=== PATIENT | female | born 1940 | race Caucasian/White ===

== ENCOUNTER 2021-05-09 11:18 | Inpatient (IN) | payer MEDICARE ==
[~2021-05-09] VITALS: Ht 152.4 cm; Wt 55.8 kg
[2021-05-09] MEDS ORDERED: Morphine 2mg Syringe 2 MG/ML SYR IV STA (12:19)
[2021-05-09] MEDS ORDERED: ONDANSETRON HCL INJ 2MG/ML 2ML 2 MG/ML VIAL IV STA (12:19)
[2021-05-09] MEDS ORDERED: SODIUM CHLORIDE 0.9% 1000ML 500 ML IV STA (12:19)
[2021-05-09 12:35] LABS: BASOPHILS % 0.2 % (0.0-1.0); EOSINOPHILS # (AUTO) 0.1 (0.0-0.4); EOSINOPHILS % 0.3 % (0.0-6.0); HEMATOCRIT 35.9 % (34.2-44.1); HEMOGLOBIN 10.6 g/dL (12.0-16.0); LYMPHOCYTES # (AUTO) 2.5 (1.0-3.2); MEAN CORPUSCULAR HGB CONC 29.5 g/dL (31-35); MEAN CORPUSCULAR VOLUME 91.3 fL (81-99); MONOCYTES # (AUTO) 0.9 (0.2-0.8); MONOCYTES % 5.3 % (4.4-11.3); NEUTROPHILS # (AUTO) 13.2 (2.1-6.9); NEUTROPHILS % 78.7 % (38.7-80.0); PLATELET COUNT 366 x10e3/uL (140-360); RED BLOOD COUNT 3.93 x10e6/uL (3.6-5.1); RED CELL DISTRIBUTION WIDTH 13.6 % (11.7-14.4)
[2021-05-09 12:45] LABS: INR 0.95; PROTHROMBIN TIME 13.4 seconds (11.9-14.5)
[2021-05-09 12:46] LABS: PARTIAL THROMBOPLASTIN TIME 32.4 seconds (23.8-35.5)
[2021-05-09 12:55] LABS: ALBUMIN 3.6 g/dL (3.5-5.0); ALBUMIN/GLOBULIN RATIO 0.9 (0.8-2.0); ANION GAP 14.3 mmol/L (8-16); CALCIUM 9.2 mg/dL (8.4-10.2); CREATININE, SERUM 0.71 mg/dL (0.57-1.11); POTASSIUM 4.3 mmol/L (3.5-5.1)
[2021-05-09 13:02] LABS: CREATINE KINASE MB 0.9 ng/mL (0-5.0)
[2021-05-09] MEDS ORDERED: IOPAMIDOL 370 MG/ML 200 ML INFUS..BTL INJ ONE (13:19)
[2021-05-09] MEDS ORDERED: SODIUM CHLORIDE 0.9% 50ML 50 ML ONE (13:19)
[2021-05-09] MEDS ORDERED: Vancomycin IV 1 GM in SODIUM CHLORIDE 0.9% 250ML 250 ML IV STA (14:22)
[2021-05-09] MEDS ORDERED: PIPERACILLIN/TAZOBACTAM 3.375 GM in SODIUM CHLORIDE 0.9% 50ML 50 ML IV ONE (15:15)
[2021-05-09] MEDS ORDERED: Morphine 2mg Syringe 2 MG/ML SYR IV PRN (15:15)
[2021-05-09] MEDS: D5.45%NS/KCL 20MEQ 1,000 ML IV SCH (17:51)
[2021-05-09 18:17] VITALS: BP 163/68
[2021-05-09 18:24] LABS: CREATINE KINASE MB 0.9 ng/mL (0-5.0)
[2021-05-09 18:30] VITALS: BP 163/68
[2021-05-09 18:42] VITALS: BP 163/68
[2021-05-09] MEDS ORDERED: ACETAMINOPHEN 650 MG SUPP PR PRN (19:15)
[2021-05-09 22:08] VITALS: BP 161/63
[2021-05-09] MEDS ORDERED: PREDNISONE10 MG PO (22:26)
[2021-05-09] MEDS ORDERED: METOPROLOL SUCC25 MG PO (22:26)
[2021-05-09] MEDS ORDERED: ALPRAZOLAM0.25 MG PO (22:26)
[2021-05-09] MEDS ORDERED: ALENDRONATE SOD70 MG PO (22:26)
[2021-05-09] MEDS ORDERED: CLOPIDOGREL75 MG PO (22:26)
[2021-05-09] MEDS ORDERED: ATORVASTATIN CA20 MG PO (22:26)
[2021-05-10 00:30] VITALS: BP 161/63
[2021-05-10 00:48] VITALS: BP 149/70
[2021-05-10] MEDS: Morphine 2mg Syringe 2 MG/ML SYR IV PRN ×3 (02:15→10:06)
[2021-05-10] MEDS: D5.45%NS/KCL 20MEQ 1,000 ML IV SCH ×4 (02:18→21:30)
[2021-05-10 02:44] LABS: FERRITIN 23.49 ng/mL (4.63-204.00)
[2021-05-10] MEDS ORDERED: Pantoprazole IV 40 MG in SODIUM CHLORIDE 0.9% 50ML 50 ML IV SCH (02:45)
[2021-05-10 05:28] VITALS: BP 134/58
[2021-05-10 06:32] LABS: BASOPHILS % 0.2 % (0.0-1.0); EOSINOPHILS # (AUTO) 0.1 (0.0-0.4); EOSINOPHILS % 0.8 % (0.0-6.0); HEMATOCRIT 30.3 % (34.2-44.1); HEMOGLOBIN 9.1 g/dL (12.0-16.0); LYMPHOCYTES # (AUTO) 1.9 (1.0-3.2); LYMPHOCYTES % 14.8 % (18.0-39.1); MEAN CORPUSCULAR HEMOGLOBIN 26.8 pg (28-32); MEAN CORPUSCULAR VOLUME 89.4 fL (81-99); MONOCYTES # (AUTO) 1.1 (0.2-0.8); MONOCYTES % 8.5 % (4.4-11.3); NEUTROPHILS # (AUTO) 9.9 (2.1-6.9); NEUTROPHILS % 75.2 % (38.7-80.0); PLATELET COUNT 301 x10e3/uL (140-360); RED BLOOD COUNT 3.39 x10e6/uL (3.6-5.1); RED CELL DISTRIBUTION WIDTH 13.7 % (11.7-14.4)
[2021-05-10 07:13] LABS: ALBUMIN 2.9 g/dL (3.5-5.0); ANION GAP 11.5 mmol/L (8-16); CALCIUM 7.7 mg/dL (8.4-10.2); CREATININE, SERUM 0.6 mg/dL (0.57-1.11); POTASSIUM 4.5 mmol/L (3.5-5.1)
[2021-05-10 07:29] LABS: CHOL/HDL RATIO 2.9 (3.0-3.6); MAGNESIUM 2.2 MG/DL (1.3-2.1); PHOSPHORUS 2.1 MG/DL (2.3-4.7)
[2021-05-10 07:38] LABS: CREATINE KINASE MB 0.6 ng/mL (0-5.0)
[2021-05-10 07:50] LABS: THYROID STIMULATING HORMONE 1.03 uIU/mL (0.350-4.940)
[2021-05-10] MEDS: Pantoprazole IV 40 MG in SODIUM CHLORIDE 0.9% 50ML 50 ML IV SCH ×4 (08:11→22:32)
[2021-05-10 08:12] VITALS: BP 134/52
[2021-05-10] MEDS ORDERED: SODIUM CHLORIDE 0.9% 50ML 50 ML ONE (10:37)
[2021-05-10] MEDS ORDERED: IOPAMIDOL 370 MG/ML 200 ML INFUS..BTL INJ ONE (10:38)
[2021-05-10] MEDS ORDERED: Morphine 2mg Syringe 2 MG/ML SYR IV ONE (11:00)
[2021-05-10] MEDS ORDERED: NALOXONE HCL INJ 0.4 MG/ML AMP IV PRN (11:00)
[2021-05-10] MEDS: Morphine 4mg Syringe 4 MG/ML INJ IV PRN ×3 (13:05→21:30)
[2021-05-10 15:43] LABS: CREATINE KINASE MB 0.6 ng/mL (0-5.0)
[2021-05-10 20:22] VITALS: BP 132/54
[2021-05-10 21:30] VITALS: BP 132/54
[2021-05-10] MEDS: ONDANSETRON HCL INJ 2MG/ML 2ML 2 MG/ML VIAL IV PRN (21:30)
[2021-05-11] VITALS (8 sets, daily range): BP systolic 110–140; BP diastolic 43–57
[2021-05-11] MEDS: ONDANSETRON HCL INJ 2MG/ML 2ML 2 MG/ML VIAL IV PRN ×4 (01:30→16:42)
[2021-05-11] MEDS: Morphine 4mg Syringe 4 MG/ML INJ IV PRN ×4 (01:30→16:42)
[2021-05-11] MEDS: Pantoprazole IV 40 MG in SODIUM CHLORIDE 0.9% 50ML 50 ML IV SCH ×5 (03:32→21:45)
[2021-05-11 05:37] LABS: BASOPHILS % 0.3 % (0.0-1.0); EOSINOPHILS # (AUTO) 0.1 (0.0-0.4); EOSINOPHILS % 0.9 % (0.0-6.0); HEMATOCRIT 27.9 % (34.2-44.1); HEMOGLOBIN 8.2 g/dL (12.0-16.0); LYMPHOCYTES # (AUTO) 1.3 (1.0-3.2); LYMPHOCYTES % 19.5 % (18.0-39.1); MEAN CORPUSCULAR HEMOGLOBIN 26.8 pg (28-32); MEAN CORPUSCULAR HGB CONC 29.4 g/dL (31-35); MEAN CORPUSCULAR VOLUME 91.2 fL (81-99); MONOCYTES # (AUTO) 0.9 (0.2-0.8); MONOCYTES % 14.1 % (4.4-11.3); NEUTROPHILS # (AUTO) 4.2 (2.1-6.9); PLATELET COUNT 247 x10e3/uL (140-360); RED BLOOD COUNT 3.06 x10e6/uL (3.6-5.1); RED CELL DISTRIBUTION WIDTH 13.5 % (11.7-14.4)
[2021-05-11 05:54] LABS: ALBUMIN 2.5 g/dL (3.5-5.0); ALBUMIN/GLOBULIN RATIO 0.8 (0.8-2.0); ANION GAP 9.4 mmol/L (8-16); CALCIUM 7.2 mg/dL (8.4-10.2); CREATININE, SERUM 0.6 mg/dL (0.57-1.11); POTASSIUM 4.4 mmol/L (3.5-5.1)
[2021-05-11] MEDS: D5.45%NS/KCL 20MEQ 1,000 ML IV SCH ×2 (06:49→16:28)
[2021-05-12] VITALS (10 sets, daily range): BP systolic 130–166; BP diastolic 48–80
[2021-05-12] MEDS: D5.45%NS/KCL 20MEQ 1,000 ML IV SCH ×2 (00:39→07:15)
[2021-05-12] MEDS: Pantoprazole IV 40 MG in SODIUM CHLORIDE 0.9% 50ML 50 ML IV SCH ×4 (03:34→19:55)
[2021-05-12 05:19] LABS: BASOPHILS % 0.3 % (0.0-1.0); EOSINOPHILS % 0.6 % (0.0-6.0); HEMATOCRIT 28.4 % (34.2-44.1); HEMOGLOBIN 8.2 g/dL (12.0-16.0); LYMPHOCYTES # (AUTO) 1.7 (1.0-3.2); LYMPHOCYTES % 25.2 % (18.0-39.1); MEAN CORPUSCULAR HEMOGLOBIN 26.5 pg (28-32); MEAN CORPUSCULAR HGB CONC 28.9 g/dL (31-35); MEAN CORPUSCULAR VOLUME 91.9 fL (81-99); MONOCYTES % 15.2 % (4.4-11.3); NEUTROPHILS % 58.6 % (38.7-80.0); PLATELET COUNT 254 x10e3/uL (140-360); RED BLOOD COUNT 3.09 x10e6/uL (3.6-5.1); RED CELL DISTRIBUTION WIDTH 13.3 % (11.7-14.4); RETICULOCYTE % 1.7 % (0.8-2.2)
[2021-05-12 05:26] LABS: ANION GAP 11.1 mmol/L (8-16); CALCIUM 7.2 mg/dL (8.4-10.2); CREATININE, SERUM 0.58 mg/dL (0.57-1.11); PHOSPHORUS 1.6 MG/DL (2.3-4.7); POTASSIUM 4.1 mmol/L (3.5-5.1)
[2021-05-12] MEDS: Morphine 4mg Syringe 4 MG/ML INJ IV PRN (05:32)
[2021-05-12] MEDS: ONDANSETRON HCL INJ 2MG/ML 2ML 2 MG/ML VIAL IV PRN ×2 (05:32→15:14)
[2021-05-12] MEDS ORDERED: PROPOFOL IV EMULSION 10 MG/ML 20 ML VIAL ONE (12:18)
[2021-05-12] MEDS ORDERED: ONDANSETRON HCL INJ 2MG/ML 2ML 2 MG/ML VIAL ONE ×2 (12:18→13:43)
[2021-05-12] MEDS ORDERED: NEOSTIGMINE 1 MG/ML 10ML VIAL ONE (12:18)
[2021-05-12] MEDS ORDERED: LIDOCAINE HCL 2% LOCAL INJ 5 ML SDV VIAL INJ ONE (12:18)
[2021-05-12] MEDS ORDERED: POVIDONE IODINE 0.05% 0.05 % ML PO ONE (12:18)
[2021-05-12] MEDS ORDERED: GLYCOPYRROLATE INJ 0.2 MG/ML VIAL ONE (12:18)
[2021-05-12] MEDS ORDERED: EPHEDRINE SULFATE INJ 50 MG/ML VIAL ONE (12:18)
[2021-05-12] MEDS ORDERED: DEXAMETHASONE SOD PHOS INJ 4 MG/ML SDV ONE (12:18)
[2021-05-12] MEDS ORDERED: SEVOFLURANE INHAL SOLN 250 ML PEN BTL ONE (12:18)
[2021-05-12] MEDS ORDERED: FENTANYL CITRATE/PF 100MCG/2 ML INJ ONE ×2 (12:53→13:47)
[2021-05-12] MEDS ORDERED: MIDAZOLAM HCL 2 MG/2 ML VIAL ONE (12:53)
[2021-05-12] MEDS ORDERED: ACETAMINOPHEN 1000 MG/100 ML IV PRN (14:00)
[2021-05-12] MEDS: SODIUM CHLORIDE 0.9% 1000ML 1,000 ML IV SCH (14:30)
[2021-05-12] MEDS: SODIUM CHLORIDE 0.9% 250ML IRRIG IR SCH ×3 (14:50→21:41)
[2021-05-12] MEDS: HYDROMORPHONE 1MG/1ML INJ IV PRN ×3 (15:12→21:40)
[2021-05-12] MEDS: CEFOXITIN 1GM/0.9% NS 50ML 50 ML IV SCH (20:10)
[2021-05-13] VITALS (11 sets, daily range): BP systolic 145–181; BP diastolic 47–64
[2021-05-13] MEDS: Pantoprazole IV 40 MG in SODIUM CHLORIDE 0.9% 50ML 50 ML IV SCH ×5 (00:58→21:40)
[2021-05-13] MEDS: SODIUM CHLORIDE 0.9% 1000ML 1,000 ML IV SCH ×3 (00:58→19:54)
[2021-05-13] MEDS: HYDROMORPHONE 1MG/1ML INJ IV PRN ×6 (01:13→19:34)
[2021-05-13] MEDS: SODIUM CHLORIDE 0.9% 250ML IRRIG IR SCH ×6 (01:34→21:33)
[2021-05-13] MEDS ORDERED: HYDROMORPHONE 1MG/1ML INJ IV ONE (01:45)
[2021-05-13] MEDS: CEFOXITIN 1GM/0.9% NS 50ML 50 ML IV SCH (04:29)
[2021-05-13 08:03] LABS: BASOPHILS % 0.1 % (0.0-1.0); HEMATOCRIT 28.2 % (34.2-44.1); HEMOGLOBIN 8.4 g/dL (12.0-16.0); LYMPHOCYTES # (AUTO) 0.7 (1.0-3.2); MEAN CORPUSCULAR HGB CONC 29.8 g/dL (31-35); MEAN CORPUSCULAR VOLUME 90.7 fL (81-99); MONOCYTES % 10.6 % (4.4-11.3); NEUTROPHILS # (AUTO) 7.4 (2.1-6.9); NEUTROPHILS % 80.6 % (38.7-80.0); PLATELET COUNT 297 x10e3/uL (140-360); RED BLOOD COUNT 3.11 x10e6/uL (3.6-5.1); RED CELL DISTRIBUTION WIDTH 13.5 % (11.7-14.4)
[2021-05-13 08:16] LABS: ANION GAP 11.8 mmol/L (8-16); CREATININE, SERUM 0.64 mg/dL (0.57-1.11); POTASSIUM 3.8 mmol/L (3.5-5.1)
[2021-05-13] MEDS: ONDANSETRON HCL INJ 2MG/ML 2ML 2 MG/ML VIAL IV PRN (09:25)
[2021-05-13] MEDS ORDERED: SODIUM CHLORIDE 0.9% 50ML 50 ML ONE (11:56)
[2021-05-13] MEDS: IRON SUCROSE 100 MG in SODIUM CHLORIDE 0.9% 100 ML 100 ML IV SCH (12:40)
[2021-05-14] VITALS (7 sets, daily range): BP systolic 143–167; BP diastolic 46–66
[2021-05-14] MEDS: SODIUM CHLORIDE 0.9% 250ML IRRIG IR SCH ×6 (01:32→21:08)
[2021-05-14] MEDS: HYDROMORPHONE 1MG/1ML INJ IV PRN ×7 (01:36→23:09)
[2021-05-14] MEDS: Pantoprazole IV 40 MG in SODIUM CHLORIDE 0.9% 50ML 50 ML IV SCH ×5 (01:42→21:08)
[2021-05-14] MEDS: SODIUM CHLORIDE 0.9% 1000ML 1,000 ML IV SCH ×3 (04:32→21:08)
[2021-05-14 06:45] LABS: BASOPHILS % 0.1 % (0.0-1.0); EOSINOPHILS % 0.2 % (0.0-6.0); HEMATOCRIT 26.1 % (34.2-44.1); HEMOGLOBIN 7.6 g/dL (12.0-16.0); LYMPHOCYTES # (AUTO) 1.2 (1.0-3.2); MEAN CORPUSCULAR HEMOGLOBIN 26.7 pg (28-32); MEAN CORPUSCULAR HGB CONC 29.1 g/dL (31-35); MEAN CORPUSCULAR VOLUME 91.6 fL (81-99); MONOCYTES # (AUTO) 1.1 (0.2-0.8); MONOCYTES % 11.3 % (4.4-11.3); NEUTROPHILS # (AUTO) 7.4 (2.1-6.9); NEUTROPHILS % 76.1 % (38.7-80.0); PLATELET COUNT 299 x10e3/uL (140-360); RED BLOOD COUNT 2.85 x10e6/uL (3.6-5.1); RED CELL DISTRIBUTION WIDTH 13.8 % (11.7-14.4)
[2021-05-14 07:00] LABS: ANION GAP 10.7 mmol/L (8-16); CALCIUM 7.4 mg/dL (8.4-10.2); CREATININE, SERUM 0.54 mg/dL (0.57-1.11); POTASSIUM 3.7 mmol/L (3.5-5.1)
[2021-05-14] MEDS: ONDANSETRON HCL INJ 2MG/ML 2ML 2 MG/ML VIAL IV PRN (09:06)
[2021-05-14] MEDS: IRON SUCROSE 100 MG in SODIUM CHLORIDE 0.9% 100 ML 100 ML IV SCH (10:39)
[2021-05-14] MEDS ORDERED: BISACODYL 10 MG SUPP PR ONE ×2 (13:51→14:10)
[2021-05-14] MEDS: BISACODYL 10 MG SUPP PR SCH (21:13)
[2021-05-15] VITALS (8 sets, daily range): BP systolic 147–177; BP diastolic 56–70
[2021-05-15] MEDS: SODIUM CHLORIDE 0.9% 250ML IRRIG IR SCH ×4 (01:30→13:30)
[2021-05-15] MEDS: Pantoprazole IV 40 MG in SODIUM CHLORIDE 0.9% 50ML 50 ML IV SCH ×5 (03:55→22:54)
[2021-05-15] MEDS: HYDROMORPHONE 1MG/1ML INJ IV PRN ×4 (05:26→22:04)
[2021-05-15 06:23] LABS: BASOPHILS % 0.2 % (0.0-1.0); EOSINOPHILS % 0.4 % (0.0-6.0); HEMATOCRIT 25.7 % (34.2-44.1); HEMOGLOBIN 7.7 g/dL (12.0-16.0); LYMPHOCYTES # (AUTO) 1.3 (1.0-3.2); LYMPHOCYTES % 15.6 % (18.0-39.1); MEAN CORPUSCULAR HEMOGLOBIN 26.7 pg (28-32); MEAN CORPUSCULAR VOLUME 89.2 fL (81-99); MONOCYTES # (AUTO) 0.8 (0.2-0.8); MONOCYTES % 9.5 % (4.4-11.3); NEUTROPHILS # (AUTO) 6.3 (2.1-6.9); NEUTROPHILS % 73.6 % (38.7-80.0); PLATELET COUNT 311 x10e3/uL (140-360); RED BLOOD COUNT 2.88 x10e6/uL (3.6-5.1); RED CELL DISTRIBUTION WIDTH 13.3 % (11.7-14.4)
[2021-05-15 06:51] LABS: ALBUMIN 1.9 g/dL (3.5-5.0); ALBUMIN/GLOBULIN RATIO 0.6 (0.8-2.0); ANION GAP 13.8 mmol/L (8-16); CALCIUM 7.7 mg/dL (8.4-10.2); CREATININE, SERUM 0.5 mg/dL (0.57-1.11)
[2021-05-15 06:55] LABS: POTASSIUM 2.8 mmol/L (3.5-5.1)
[2021-05-15] MEDS ORDERED: DEXTROSE 50% SYRINGE 50 ML IV ONE (07:21)
[2021-05-15] MEDS: BISACODYL 10 MG SUPP PR SCH (08:43)
[2021-05-15] MEDS: POTASSIUM CHLORIDE 20MEQ/100ML 100 ML IV ONE ×2 (08:43→12:40)
[2021-05-15] MEDS: IRON SUCROSE 100 MG in SODIUM CHLORIDE 0.9% 100 ML 100 ML IV SCH (08:43)
[2021-05-15] MEDS ORDERED: POTASSIUM CHLORIDE 20MEQ/100ML 100 ML IV ONE ×2 (10:00→15:00)
[2021-05-15] MEDS ORDERED: BISACODYL 10 MG SUPP PR ONE (10:15)
[2021-05-15] MEDS: SODIUM CHLORIDE 0.9% 1000ML 1,000 ML IV SCH ×2 (12:22→21:48)
[2021-05-15] MEDS: ONDANSETRON HCL INJ 2MG/ML 2ML 2 MG/ML VIAL IV PRN (12:30)
[2021-05-15] MEDS ORDERED: POTASSIUM CHLORIDE 20MEQ/100ML 100 ML ONE (19:14)
[2021-05-16 00:11] VITALS: BP 144/59
[2021-05-16] MEDS: Pantoprazole IV 40 MG in SODIUM CHLORIDE 0.9% 50ML 50 ML IV SCH ×5 (04:08→23:04)
[2021-05-16] MEDS: HYDROMORPHONE 1MG/1ML INJ IV PRN ×3 (04:13→15:42)
[2021-05-16 04:23] VITALS: BP_SYST 154; BP_SYST 160; BP_DIAS 105; BP_DIAS 56
[2021-05-16 05:05] LABS: BASOPHILS % 0.1 % (0.0-1.0); EOSINOPHILS % 0.6 % (0.0-6.0); LYMPHOCYTES # (AUTO) 1.1 (1.0-3.2); LYMPHOCYTES % 15.8 % (18.0-39.1); MEAN CORPUSCULAR HEMOGLOBIN 26.4 pg (28-32); MEAN CORPUSCULAR HGB CONC 29.6 g/dL (31-35); MEAN CORPUSCULAR VOLUME 89.1 fL (81-99); MONOCYTES # (AUTO) 0.8 (0.2-0.8); MONOCYTES % 10.8 % (4.4-11.3); NEUTROPHILS # (AUTO) 5.1 (2.1-6.9); NEUTROPHILS % 72.1 % (38.7-80.0); PLATELET COUNT 293 x10e3/uL (140-360); RED BLOOD COUNT 3.03 x10e6/uL (3.6-5.1); RED CELL DISTRIBUTION WIDTH 13.5 % (11.7-14.4)
[2021-05-16 05:33] LABS: ALBUMIN/GLOBULIN RATIO 0.7 (0.8-2.0); ANION GAP 12.5 mmol/L (8-16); CALCIUM 7.7 mg/dL (8.4-10.2); CREATININE, SERUM 0.53 mg/dL (0.57-1.11); POTASSIUM 3.5 mmol/L (3.5-5.1)
[2021-05-16] MEDS: SODIUM CHLORIDE 0.9% 1000ML 1,000 ML IV SCH ×2 (07:30→16:47)
[2021-05-16 08:00] VITALS: BP 160/56
[2021-05-16 08:40] VITALS: BP 148/54
[2021-05-16] MEDS: IRON SUCROSE 100 MG in SODIUM CHLORIDE 0.9% 100 ML 100 ML IV SCH (09:00)
[2021-05-16] MEDS: HYDROCODONE/APAP 5MG-325MG TAB PO PRN (17:30)
[2021-05-16 20:22] VITALS: BP 148/54
[2021-05-16 20:49] VITALS: BP 170/60
[2021-05-17] VITALS (8 sets, daily range): BP systolic 139–174; BP diastolic 61–83
[2021-05-17] MEDS: HYDROMORPHONE 1MG/1ML INJ IV PRN (00:44)
[2021-05-17] MEDS: Pantoprazole IV 40 MG in SODIUM CHLORIDE 0.9% 50ML 50 ML IV SCH (06:49)
[2021-05-17 07:22] LABS: BASOPHILS % 0.2 % (0.0-1.0); EOSINOPHILS # (AUTO) 0.1 (0.0-0.4); EOSINOPHILS % 0.9 % (0.0-6.0); HEMATOCRIT 27.5 % (34.2-44.1); HEMOGLOBIN 8.1 g/dL (12.0-16.0); LYMPHOCYTES # (AUTO) 2.1 (1.0-3.2); LYMPHOCYTES % 20.8 % (18.0-39.1); MEAN CORPUSCULAR HEMOGLOBIN 26.3 pg (28-32); MEAN CORPUSCULAR HGB CONC 29.5 g/dL (31-35); MEAN CORPUSCULAR VOLUME 89.3 fL (81-99); MONOCYTES # (AUTO) 0.9 (0.2-0.8); MONOCYTES % 8.7 % (4.4-11.3); NEUTROPHILS # (AUTO) 6.8 (2.1-6.9); NEUTROPHILS % 68.6 % (38.7-80.0); PLATELET COUNT 327 x10e3/uL (140-360); RED BLOOD COUNT 3.08 x10e6/uL (3.6-5.1); RED CELL DISTRIBUTION WIDTH 13.5 % (11.7-14.4)
[2021-05-17 07:50] LABS: ALBUMIN/GLOBULIN RATIO 0.7 (0.8-2.0); ANION GAP 12.3 mmol/L (8-16); CALCIUM 7.9 mg/dL (8.4-10.2); CREATININE, SERUM 0.48 mg/dL (0.57-1.11); POTASSIUM 3.3 mmol/L (3.5-5.1)
[2021-05-17] MEDS: HYDROCODONE/APAP 5MG-325MG TAB PO PRN ×2 (08:41→19:45)
[2021-05-17] MEDS: PANTOPRAZOLE SOD 40 MG TABEC PO SCH ×2 (09:00→17:00)
[2021-05-17] MEDS: IRON SUCROSE 100 MG in SODIUM CHLORIDE 0.9% 100 ML 100 ML IV SCH (09:00)
[2021-05-17] MEDS ORDERED: POTASSIUM CHLORIDE 20 MEQ TAB CR PO STA (10:08)
[2021-05-17] MEDS ORDERED: ZOLPIDEM TARTRATE 5 MG TAB PO PRN (13:15)
[2021-05-17] MEDS: SODIUM CHLORIDE 0.9% 1000ML 1,000 ML IV SCH (14:23)
[2021-05-17] MEDS: HYDRALAZINE HCL 20 MG/ML VIAL IV PRN (22:25)
[2021-05-18] VITALS (8 sets, daily range): BP systolic 126–176; BP diastolic 56–80
[2021-05-18 06:14] LABS: BASOPHILS % 0.4 % (0.0-1.0); EOSINOPHILS # (AUTO) 0.1 (0.0-0.4); EOSINOPHILS % 0.9 % (0.0-6.0); HEMATOCRIT 25.9 % (34.2-44.1); LYMPHOCYTES # (AUTO) 1.9 (1.0-3.2); LYMPHOCYTES % 17.1 % (18.0-39.1); MEAN CORPUSCULAR HEMOGLOBIN 26.9 pg (28-32); MEAN CORPUSCULAR HGB CONC 30.9 g/dL (31-35); MEAN CORPUSCULAR VOLUME 87.2 fL (81-99); MONOCYTES # (AUTO) 0.8 (0.2-0.8); MONOCYTES % 7.1 % (4.4-11.3); NEUTROPHILS # (AUTO) 8.2 (2.1-6.9); NEUTROPHILS % 73.2 % (38.7-80.0); PLATELET COUNT 246 x10e3/uL (140-360); RED BLOOD COUNT 2.97 x10e6/uL (3.6-5.1); RED CELL DISTRIBUTION WIDTH 13.7 % (11.7-14.4)
[2021-05-18 06:35] LABS: ALANINE AMINOTRANSFERASE 7 IU/L (0-55); ALBUMIN/GLOBULIN RATIO 0.7 (0.8-2.0); ALKALINE PHOSPHATASE 70 IU/L (40-150); ANION GAP 11.6 mmol/L (8-16); BLOOD UREA NITROGEN < 5 mg/dL (7-26); CALCIUM 7.4 mg/dL (8.4-10.2); CARBON DIOXIDE 30 mmol/L (22-29); CHLORIDE 101 mmol/L (98-107); CREATININE, SERUM 0.45 mg/dL (0.57-1.11); EST GLOMERULAR FILTRATION RATE 133 ML/MIN (60-); GLUCOSE 90 mg/dL (74-118); SODIUM 140 mmol/L (136-145)
[2021-05-18 06:43] LABS: BUN/CREATININE RATIO 11 (6-25)
[2021-05-18 06:45] LABS: POTASSIUM 2.6 mmol/L (3.5-5.1)
[2021-05-18] MEDS: POTASSIUM CHLORIDE 20MEQ/100ML 200 ML IV SCH ×2 (08:50→10:00)
[2021-05-18] MEDS: PANTOPRAZOLE SOD 40 MG TABEC PO SCH ×2 (09:00→16:31)
[2021-05-18] MEDS: IRON SUCROSE 100 MG in SODIUM CHLORIDE 0.9% 100 ML 100 ML IV SCH (09:00)
[2021-05-18] MEDS: HYDROMORPHONE 1MG/1ML INJ IV PRN ×2 (09:20→15:30)
[2021-05-18] MEDS: SODIUM CHLORIDE 0.9% 1000ML 1,000 ML IV SCH (10:23)
[2021-05-19] VITALS (8 sets, daily range): BP systolic 127–170; BP diastolic 50–74
[2021-05-19 05:05] LABS: BASOPHILS % 0.2 % (0.0-1.0); EOSINOPHILS # (AUTO) 0.1 (0.0-0.4); EOSINOPHILS % 0.6 % (0.0-6.0); HEMATOCRIT 27.9 % (34.2-44.1); HEMOGLOBIN 8.4 g/dL (12.0-16.0); LYMPHOCYTES # (AUTO) 2.1 (1.0-3.2); LYMPHOCYTES % 16.5 % (18.0-39.1); MEAN CORPUSCULAR HEMOGLOBIN 26.8 pg (28-32); MEAN CORPUSCULAR HGB CONC 30.1 g/dL (31-35); MEAN CORPUSCULAR VOLUME 88.9 fL (81-99); MONOCYTES # (AUTO) 0.8 (0.2-0.8); MONOCYTES % 6.4 % (4.4-11.3); NEUTROPHILS # (AUTO) 9.6 (2.1-6.9); NEUTROPHILS % 75.1 % (38.7-80.0); PLATELET COUNT 327 x10e3/uL (140-360); RED BLOOD COUNT 3.14 x10e6/uL (3.6-5.1); RED CELL DISTRIBUTION WIDTH 14.4 % (11.7-14.4)
[2021-05-19 05:19] LABS: ALANINE AMINOTRANSFERASE 6 IU/L (0-55); ALBUMIN/GLOBULIN RATIO 0.7 (0.8-2.0); ALKALINE PHOSPHATASE 74 IU/L (40-150); ANION GAP 12.8 mmol/L (8-16); BLOOD UREA NITROGEN < 5 mg/dL (7-26); CALCIUM 7.8 mg/dL (8.4-10.2); CARBON DIOXIDE 32 mmol/L (22-29); CHLORIDE 97 mmol/L (98-107); CREATININE, SERUM 0.51 mg/dL (0.57-1.11); EST GLOMERULAR FILTRATION RATE 115 ML/MIN (60-); GLUCOSE 122 mg/dL (74-118); SODIUM 139 mmol/L (136-145)
[2021-05-19 05:22] LABS: BUN/CREATININE RATIO 10 (6-25)
[2021-05-19 05:25] LABS: POTASSIUM 2.8 mmol/L (3.5-5.1)
[2021-05-19] MEDS ORDERED: POTASSIUM CHLORIDE 20 MEQ TAB CR PO ONE (05:45)
[2021-05-19] MEDS: SODIUM CHLORIDE 0.9% 1000ML 1,000 ML IV SCH (06:03)
[2021-05-19] MEDS: PANTOPRAZOLE SOD 40 MG TABEC PO SCH ×2 (10:19→17:50)
[2021-05-19] MEDS: IRON SUCROSE 100 MG in SODIUM CHLORIDE 0.9% 100 ML 100 ML IV SCH (10:19)
[2021-05-19] MEDS: HYDROMORPHONE 1MG/1ML INJ IV PRN (10:22)
[2021-05-19] MEDS ORDERED: ONDANSETRON HCL 4 MG ORAL DISINTEGRATING TAB PO PRN (11:30)
[2021-05-19] MEDS: HYDRALAZINE HCL 20 MG/ML VIAL IV PRN (12:06)
[2021-05-19] MEDS: HYDROCODONE/APAP 5MG-325MG TAB PO PRN (18:21)
[2021-05-20] VITALS (9 sets, daily range): BP systolic 119–158; BP diastolic 58–81
[2021-05-20] MEDS: HYDROCODONE/APAP 5MG-325MG TAB PO PRN ×2 (01:00→06:41)
[2021-05-20] MEDS ORDERED: DICYCLOMINE HCL 20 MG TAB PO STA (01:05)
[2021-05-20] MEDS: SODIUM CHLORIDE 0.9% 1000ML 1,000 ML IV SCH (04:07)
[2021-05-20 06:25] LABS: BASOPHILS % 0.2 % (0.0-1.0); EOSINOPHILS # (AUTO) 0.1 (0.0-0.4); EOSINOPHILS % 0.8 % (0.0-6.0); HEMATOCRIT 24.7 % (34.2-44.1); HEMOGLOBIN 7.4 g/dL (12.0-16.0); LYMPHOCYTES # (AUTO) 1.8 (1.0-3.2); LYMPHOCYTES % 14.2 % (18.0-39.1); MEAN CORPUSCULAR HEMOGLOBIN 26.9 pg (28-32); MEAN CORPUSCULAR VOLUME 89.8 fL (81-99); MONOCYTES # (AUTO) 0.7 (0.2-0.8); MONOCYTES % 5.1 % (4.4-11.3); NEUTROPHILS % 78.5 % (38.7-80.0); PLATELET COUNT 351 x10e3/uL (140-360); RED BLOOD COUNT 2.75 x10e6/uL (3.6-5.1); RED CELL DISTRIBUTION WIDTH 15.2 % (11.7-14.4)
[2021-05-20 06:46] LABS: ALBUMIN 1.8 g/dL (3.5-5.0); ALBUMIN/GLOBULIN RATIO 0.6 (0.8-2.0); CREATININE, SERUM 0.47 mg/dL (0.57-1.11)
[2021-05-20] MEDS ORDERED: IRON SUCROSE 100 MG in SODIUM CHLORIDE 0.9% 100 ML 100 ML IV SCH (08:45)
[2021-05-20] MEDS ORDERED: POTASSIUM CHLORIDE 20 MEQ TAB CR PO ONE (09:10)
[2021-05-20] MEDS: PANTOPRAZOLE SOD 40 MG TABEC PO SCH ×2 (09:30→17:33)
[2021-05-20] MEDS: HYDROMORPHONE 1MG/1ML INJ IV PRN ×3 (09:30→17:33)
[2021-05-20] MEDS: IRON SUCROSE 100 MG in SODIUM CHLORIDE 0.9% 100 ML 100 ML IV SCH (09:30)
[2021-05-20] MEDS: DICYCLOMINE HCL 20 MG TAB PO SCH ×4 (09:30→21:00)
[2021-05-20] MEDS: HYDROCODONE/APAP 7.5MG-325MG 1 EA TAB PO PRN ×3 (10:40→21:09)
[2021-05-21] VITALS (7 sets, daily range): BP systolic 101–179; BP diastolic 49–62
[2021-05-21 05:14] LABS: BASOPHILS % 0.1 % (0.0-1.0); EOSINOPHILS # (AUTO) 0.1 (0.0-0.4); EOSINOPHILS % 0.5 % (0.0-6.0); HEMATOCRIT 25.3 % (34.2-44.1); HEMOGLOBIN 7.9 g/dL (12.0-16.0); LYMPHOCYTES # (AUTO) 1.4 (1.0-3.2); LYMPHOCYTES % 8.7 % (18.0-39.1); MEAN CORPUSCULAR HEMOGLOBIN 27.4 pg (28-32); MEAN CORPUSCULAR HGB CONC 31.2 g/dL (31-35); MEAN CORPUSCULAR VOLUME 87.8 fL (81-99); MONOCYTES # (AUTO) 0.8 (0.2-0.8); MONOCYTES % 4.8 % (4.4-11.3); NEUTROPHILS # (AUTO) 13.3 (2.1-6.9); NEUTROPHILS % 84.9 % (38.7-80.0); PLATELET COUNT 349 x10e3/uL (140-360); RED BLOOD COUNT 2.88 x10e6/uL (3.6-5.1); RED CELL DISTRIBUTION WIDTH 15.7 % (11.7-14.4)
[2021-05-21 05:54] LABS: ALBUMIN 1.9 g/dL (3.5-5.0); ALBUMIN/GLOBULIN RATIO 0.6 (0.8-2.0); ANION GAP 11.2 mmol/L (8-16); CALCIUM 7.7 mg/dL (8.4-10.2); CREATININE, SERUM 0.45 mg/dL (0.57-1.11); POTASSIUM 3.2 mmol/L (3.5-5.1)
[2021-05-21] MEDS: PANTOPRAZOLE SOD 40 MG TABEC PO SCH ×2 (09:00→16:23)
[2021-05-21] MEDS: DICYCLOMINE HCL 20 MG TAB PO SCH ×4 (09:00→20:15)
[2021-05-21] MEDS: IRON SUCROSE 100 MG in SODIUM CHLORIDE 0.9% 100 ML 100 ML IV SCH (09:00)
[2021-05-21] MEDS: SODIUM CHLORIDE 0.9% 1000ML 1,000 ML IV SCH ×2 (09:19→16:23)
[2021-05-21] MEDS: HYDROMORPHONE 1MG/1ML INJ IV PRN ×3 (09:50→20:15)
[2021-05-21] MEDS: LEVOFLOXACIN 500 MG TAB PO SCH (10:53)
[2021-05-21] MEDS ORDERED: POTASSIUM CHLORIDE 20 MEQ TAB CR PO ONE (12:15)
[2021-05-22] MEDS ORDERED: PIPERACILLIN/TAZOBACTAM 4.5 GM in SODIUM CHLORIDE 0.9% 100 ML IV STA (02:30)
[2021-05-22] MEDS ORDERED: PIPERACILLIN/TAZOBACTAM 3.375 GM in SODIUM CHLORIDE 0.9% 50ML 50 ML IV STA (02:44)
[2021-05-22] MEDS: SODIUM CHLORIDE 0.9% 1000ML 1,000 ML IV SCH ×2 (03:04→14:23)
[2021-05-22] MEDS: PIPERACILLIN/TAZOBACTAM 3.375 GM in SODIUM CHLORIDE 0.9% 50ML 50 ML IV SCH ×2 (03:05→12:00)
[2021-05-22] MEDS: HYDROCODONE/APAP 7.5MG-325MG 1 EA TAB PO PRN ×3 (03:22→14:35)
[2021-05-22 05:01] LABS: BASOPHILS % 0.1 % (0.0-1.0); EOSINOPHILS # (AUTO) 0.1 (0.0-0.4); EOSINOPHILS % 0.6 % (0.0-6.0); HEMATOCRIT 25.7 % (34.2-44.1); HEMOGLOBIN 7.6 g/dL (12.0-16.0); LYMPHOCYTES # (AUTO) 1.2 (1.0-3.2); LYMPHOCYTES % 8.6 % (18.0-39.1); MEAN CORPUSCULAR HEMOGLOBIN 26.8 pg (28-32); MEAN CORPUSCULAR HGB CONC 29.6 g/dL (31-35); MEAN CORPUSCULAR VOLUME 90.5 fL (81-99); MONOCYTES # (AUTO) 0.9 (0.2-0.8); MONOCYTES % 6.2 % (4.4-11.3); NEUTROPHILS # (AUTO) 11.4 (2.1-6.9); NEUTROPHILS % 83.8 % (38.7-80.0); PLATELET COUNT 278 x10e3/uL (140-360); RED BLOOD COUNT 2.84 x10e6/uL (3.6-5.1)
[2021-05-22 05:21] LABS: ANION GAP 11.1 mmol/L (8-16); CALCIUM 7.4 mg/dL (8.4-10.2); CREATININE, SERUM 0.5 mg/dL (0.57-1.11); POTASSIUM 3.1 mmol/L (3.5-5.1)
[2021-05-22 05:41] VITALS: BP 118/73
[2021-05-22 08:24] VITALS: BP 151/66
[2021-05-22 08:30] VITALS: BP 151/66
[2021-05-22] MEDS: IRON SUCROSE 100 MG in SODIUM CHLORIDE 0.9% 100 ML 100 ML IV SCH (09:00)
[2021-05-22] MEDS: DICYCLOMINE HCL 20 MG TAB PO SCH ×2 (09:00→13:00)
[2021-05-22] MEDS: PANTOPRAZOLE SOD 40 MG TABEC PO SCH (09:00)
[2021-05-22] MEDS: LEVOFLOXACIN 500 MG TAB PO SCH (11:00)
[2021-05-22] MEDS ORDERED: POTASSIUM CHLORIDE 20 MEQ TAB CR PO ONE (12:00)
[2021-05-22] MEDS ORDERED: PANTOPRAZOLE SO40 MG PO (12:08)
[2021-05-22] MEDS ORDERED: LEVOFLOXACIN250 MG PO (12:09)
[2021-05-22 13:40] VITALS: BP 139/61
== END 2021-05-22 14:43 | disposition hospice, home (50) | DRG 330 ==
LOC: ER 12:28 → ERHOLD 15:40 → MED/SURG2 18:20
PROVIDERS: ADMIT Internal Medicine; ATTEND Internal Medicine
PROC: 0DTF0ZZ Resection of Right Large Intestine, Open Approach (ICD-10-PCS; principal; 2021-05-12 10:30)
DX: C78.4 Secondary malignant neoplasm of small intestine (principal); C34.31 Malignant neoplasm of lower lobe, right bronchus or lung; C18.0 Malignant neoplasm of cecum; J93.9 Pneumothorax, unspecified; C78.7 Secondary malignant neoplasm of liver and intrahepatic bile duct; C77.5 Secondary and unspecified malignant neoplasm of intrapelvic lymph nodes; K56.699 Other intestinal obstruction unspecified as to partial versus complete obstruction; E44.0 Moderate protein-calorie malnutrition; I71.4 Abdominal aortic aneurysm, without rupture; I10 Essential (primary) hypertension; I25.10 Atherosclerotic heart disease of native coronary artery without angina pectoris; Z95.5 Presence of coronary angioplasty implant and graft; Z83.3 Family history of diabetes mellitus; Z82.49 Family history of ischemic heart disease and other diseases of the circulatory system; E87.6 Hypokalemia; D64.9 Anemia, unspecified; Z20.822 Contact with and (suspected) exposure to COVID-19; D63.8 Anemia in other chronic diseases classified elsewhere; Z68.24 Body mass index [BMI] 24.0-24.9, adult
CPT/HCPCS: 36415; 71045; 71260; 74019; 74177; 80048; 80053; 80061; 82378; 82550; 82553; 82607; 82728; 82746; 82948; 83036; 83540; 83605; 83690; 83735; 84100; 84443; 84466; 84484; 85025; 85045; 85610; 85730; 86850; 86900; 87040; 87086; 88305; 88309; 88342; 93005; 94799; 96361; 96365; 96366; 97139; 99251; 99284; J0360; J0694; J1100; J1170; J1756; J2001; J2250; J2270; J2405; J2543; J2710; J3010; J3370; J3480; J7030; J7050; J7799; Q9967; U0002